=== PATIENT | male | born 1985 | race Caucasian/White ===

== ENCOUNTER 2021-08-21 15:39 | Emergency (ER) | payer BC, MEDICAID ==
[~2021-08-21] VITALS: Ht 177.8 cm; Wt 73.0 kg
[2021-08-21] MEDS ORDERED: DIPHENHYDRAMINE 50MG/ML VIAL IM STA (16:15)
[2021-08-21] MEDS ORDERED: OLANZAPINE 10 MG/VIAL IM STA (16:15)
[2021-08-21] MEDS ORDERED: MIDAZOLAM HCL 2 MG/2 ML VIAL IM ONE ×2 (16:15→18:00)
[2021-08-21] MEDS ORDERED: SODIUM CHLORIDE 0.9% 1,000 ML IV ONE (16:15)
[2021-08-21] MEDS ORDERED: DIPHENHYDRAMINE 50MG CAPSULE PO ONE (16:30)
[2021-08-21] MEDS ORDERED: OLANZAPINE 10MG TABLET PO SCH (16:30)
[2021-08-21 18:07] LABS: CHLORIDE 104 mEq/L (98-107)
[2021-08-21 18:15] LABS: ETHANOL BLOOD < 10 mg/dL
[2021-08-21 18:35] LABS: BASOPHILS % 0.3 % (0.0-2.0); EOSINOPHILS % 0.9 % (0.0-5.0); HEMATOCRIT. 39.5 % (42.0-52.0); HEMOGLOBIN. 13.3 g/dL (14.0-18.0); LYMPHOCYTES % 28.3 % (20.0-50.0); MEAN CORPUSCULAR HEMOGLOBIN 29.8 pg (28.0-32.0); MEAN CORPUSCULAR VOLUME 88.1 fL (80.0-94.0); MEAN PLATELET VOLUME 7.4 fl (7.4-10.4); MONOCYTES % 10.9 % (2.0-8.0); NEUTROPHILS % 59.6 % (40.0-76.0); PLATELET 247 x1000/uL (130-400); RED BLOOD CELL COUNT 4.48 mill/uL (4.7-6.1); RED CELL DISTRIBUTION WIDTH 12.7 % (11.6-14.6)
[2021-08-22 06:27] LABS: CLARITY URINE CLEAR (CLEAR); COLOR URINE YELLOW (YELLOW); KETONES URINE NEGATIVE (NEGATIVE); LEUKOCYTE ESTERASE URINE NEGATIVE (NEGATIVE); NITRITE URINE NEGATIVE (NEGATIVE); OCCULT BLOOD URINE TRACE (NEGATIVE); PROTEIN URINE NEGATIVE (NEGATIVE); SPECIFIC GRAVITY URINE 1.006 (1.005-1.030); UROBILINOGEN URINE 0.2 E.U./dL (0.2-1.0)
[2021-08-22 06:44] VITALS: BP 110/68
[2021-08-22 07:26] LABS: *AMPHETAMINES SCREEN URINE PRESUMTIVE POSITIVE (NEGATIVE); *BARBITURATES SCREEN URINE NEGATIVE (NEGATIVE); *BENZODIAZEPINES SCREEN URINE NEGATIVE (NEGATIVE); *COCAINE SCREEN URINE NEGATIVE (NEGATIVE); CANNABINOID URINE SCREEN NEGATIVE (NEGATIVE); METHADONE URINE SCREEN NEGATIVE (NEGATIVE); OPIATES URINE SCREEN NEGATIVE (NEGATIVE); PHENCYCLIDINE URINE SCREEN NEGATIVE (NEGATIVE)
== END 2021-08-22 07:16 | disposition home or self-care (01) ==
LOC: ER 15:39
DX: F15.10 Other stimulant abuse, uncomplicated (principal); F31.9 Bipolar disorder, unspecified; D64.9 Anemia, unspecified; Z20.822 Contact with and (suspected) exposure to COVID-19
CPT/HCPCS: 36415; 80053; 80305; 80307; 80320; 80329; 81003; 85025; 99285; C9803; J1200; J7030; Q0163; U0003; U0005; G0480

== ENCOUNTER 2021-12-31 10:01 | Emergency (ER) | payer BC, MEDICAID ==
[~2021-12-31] VITALS: Ht 182.9 cm; Wt 84.0 kg
[2021-12-31 10:25] VITALS: BP 134/95
[2021-12-31] MEDS ORDERED: HYDROXYZINE 25MG TABLET PO ONE (12:15)
[2021-12-31 13:57] LABS: *AMPHETAMINES SCREEN URINE PRESUMTIVE POSITIVE (NEGATIVE); *BARBITURATES SCREEN URINE NEGATIVE (NEGATIVE); *BENZODIAZEPINES SCREEN URINE NEGATIVE (NEGATIVE); *COCAINE SCREEN URINE NEGATIVE (NEGATIVE); CANNABINOID URINE SCREEN PRESUMTIVE POSITIVE (NEGATIVE); METHADONE URINE SCREEN NEGATIVE (NEGATIVE); OPIATES URINE SCREEN NEGATIVE (NEGATIVE); PHENCYCLIDINE URINE SCREEN NEGATIVE (NEGATIVE)
== END 2021-12-31 14:16 | disposition home or self-care (01) ==
LOC: EDBD → ER 10:01
DX: F15.90 Other stimulant use, unspecified, uncomplicated (principal); F41.9 Anxiety disorder, unspecified; F41.0 Panic disorder [episodic paroxysmal anxiety]
CPT/HCPCS: 80305; 99283

== ENCOUNTER 2022-01-01 08:00 | Emergency (ER) | payer BC, MEDICAID ==
[~2022-01-01] VITALS: Ht 185.4 cm; Wt 88.0 kg
[2022-01-01 08:05] VITALS: BP 118/91
== END 2022-01-01 08:58 | disposition home or self-care (01) ==
LOC: EDBD → ER 08:10
DX: F15.10 Other stimulant abuse, uncomplicated (principal)
CPT/HCPCS: 99281

== ENCOUNTER 2022-01-03 05:19 | Emergency (ER) | payer BC, MEDICAID ==
[~2022-01-03] VITALS: Ht 182.9 cm; Wt 88.0 kg
[2022-01-03 05:40] VITALS: BP 133/89
== END 2022-01-03 05:55 | disposition left against medical advice (07) ==
LOC: ER 05:19
DX: F15.10 Other stimulant abuse, uncomplicated (principal)
CPT/HCPCS: 99281